=== PATIENT | female | born 1985 | race Caucasian/White ===

== ENCOUNTER → 2017-11-27 10:15 | Outpatient (CLI) | payer MEDICAID, SELFPAY ==
--- NOTE | 2017-11-27 10:21 | XR_ITS ---
XR knee LT 3V HISTORY: Pain following injury ITS.REASON: LEFT KNEE INJURY ORDERING PHYSICIAN: JAYCOB Jimenez PATIENT AGE: 32 years COMPARISON: None FINDINGS: Exostosis involves the superior aspect of the patella No fracture or dislocation. No lytic or blastic change. Normal mineralization. No significant arthritic changes evident. No other significant findings IMPRESSION: No acute finding
== END ==
PROVIDERS: PCP Family Medicine; Visit Provider Physician Assistant
DX: S89.92XA Unspecified injury of left lower leg, initial encounter (principal)
CPT/HCPCS: 73562

== ENCOUNTER 2020-02-17 13:48 | Emergency (ER) | payer OTHER, SELFPAY ==
[2020-02-17 13:58] VITALS: BP 140/87; PULSE 68; RESP 20; TEMP 36.8; O2SAT 100; BMI 31.6
--- NOTE | 2020-02-17 14:08 | HMH.EDUTC ---
[facility] [place] Disposition Clinical Impression: Otitis media Qualifiers: Otitis media type: unspecified Laterality: right Qualified Code(s): H66.91 - Otitis media, unspecified, right ear Disposition: Home, Self-Care Condition on Discharge: Good Instructions: Middle Ear Infection, Middle Ear Infections (Alternative Therapy), Amoxicillin Additional Instructions: *Monitor Temp, Over the counter Motrin or Tylenol as directed/as needed Tylenol every 4 hours and Motrin every 6 hours (as long as your family doctor has told you that you can take it) for fever or pain. and straight to ER if unable to lower temp less than 101.0 after medication given *Warm salt water gargles may help to soothe the throat *Throat Lozenges *Warm fluids like tea with honey may help to soothe the throat *Sleep elevated *Humidifier/Vaporizer *Flonase 2 sprays in each nostril daily but be aware that it may take 2-3 days before you notice improvement Follow up IMMEDIATELY for new or worsening symptoms or no Noticeable improvement over the next 48-72 hours. 911 for difficulty breathing or swallowing Prescriptions: Amoxicillin [Amoxicillin 875MG Tab] 875 mg PO Q12H #20 tab Transmission Status: P[facility] to [facility] Fluticasone Propionate [Flonase 50mcg nasal spray 16gm] 1 - 2 spr NS DAILY #1 bottle Transmission Status: Pending to [facility] Referrals: Ashvin Addison MD [Primary Care Provider] - As needed Time of Disposition: 14:16 Medical Decision Making - Benjamín Inquiry Pt receiving controlled substance: No Benjamín was queried for this patient: No Vital Signs: 02/17/20 13:58 Temperature 98.2 F Temperature Source Oral Pulse Rate [Right Brachial] 68 Respiratory Rate 20 Blood Pressure [Right Arm] 140/87 Blood Pressure Mean [Right Arm] 104 Blood Pressure Source [Right Arm] Automatic Cuff Blood Pressure Position [Right Arm] Sitting 02 Sat by Pulse Oximetry 100 Oxygen Delivery Method Room Air [facility] [place] HPI - General Stated complaint: ear pain Time Seen by Provider: 02/17/20 14:08 Mode of Arrival: Ambulatory Source of Information: Patient Limitations: No Limitations Description of Symptoms (Recalled from Triage Doc. by RN): PATIENT C/O RIGHT EAR PAIN X 2 DAYS HEENT Symptoms (Recalled from RN notes): Yes Resp Symptoms (Recalled from RN notes): No Skin Symptoms (Recalled from RN notes): No MS Symptoms (Recalled from RN notes): No Functional Status (Recalled from RN notes): WNL - History of Present Illness Provider Complaint: Patient states that she has been having pain in her right ear that has continued to get worse over the last couple of days States that today it was throbbing and felt like she had water stuck in there States that it was shooting pain down into her neck/throat area so she come in to get it checked out - Related Data Home Medications Medication Instructions Recorded Confirmed phentermine 37.5 mg capsule 37.5 mg PO DAILY 01/03/20 02/17/20 Previous Rx's Medication Instructions Recorded Amoxicillin [Amoxicillin 875MG 875 mg PO Q12H #20 tab 02/17/20 Tab] Fluticasone Propionate [Flonase 1 - 2 spr NS DAILY #1 bottle 02/17/20 50mcg nasal spray 16gm] Allergies Allergy/AdvReac Type Severity Reaction Status Date / Time No Known Allergies Allergy Verified 01/03/20 16:12 - Worker's Comp Is this a Worker's Comp case?: No [facility] History - Hepatitis A Screen Drug use history?: No High risk sexual behaviors?: No History of sexually transmitted infection?: No Currently employed?: No Childcare worker?: No Do you have indoor plumbing?: Yes Do you have electricity?: Yes Attestation statement:: This patient has been screened for Hepatitis A risk factors. I have reviewed the patient's past medical history: Yes Other Surgeries: Yes: , Tubal Ligation, Other - Social History Smoking Status: Current every day smoker Tobacco Type: cigarettes # Packs/Day (cigarettes): 1
[2020-02-17 14:18] VITALS: BP 140/87; PULSE 68; RESP 20; TEMP 36.8; O2SAT 100
== END 2020-02-17 14:25 | disposition home or self-care (01) ==
PROVIDERS: Emergency Provider Nurse Practitioner; PCP Family Medicine
DX: H66.91 Otitis media, unspecified, right ear (principal); F17.210 Nicotine dependence, cigarettes, uncomplicated
CPT/HCPCS: 99201

== ENCOUNTER 2020-04-02 17:17 | Emergency (ER) | payer OTHER, SELFPAY ==
[2020-04-02 17:25] VITALS: BP 125/86; PULSE 64; RESP 20; TEMP 36.8; O2SAT 100; BMI 32.4
--- NOTE | 2020-04-02 18:40 | HMH.EDUTC ---
[facility] [place] Disposition Clinical Impression: Right otitis media Qualifiers: Otitis media type: suppurative Chronicity: acute Recurrence: non-recurrent Spontaneous tympanic membrane rupture: without spontaneous rupture Qualified Code(s): H66.001 - Acute suppurative otitis media without spontaneous rupture of ear drum, right ear Disposition: Home, Self-Care Condition on Discharge: Good Instructions: Middle Ear Infection Additional Instructions: Drink plenty of fluids. Take tylenol or ibuprofen for pain or fever. Take the medications as directed. Follow up with your regular doctor. GO TO THE ER FOR ANY WORSENING SYMPTOMS Prescriptions: Amoxicillin/Potassium Clav [Augmentin 875-125 Tablet] 1 tab PO Q12H 10 Days #20 tab Transmission Status: Received by [facility] predniSONE [Deltasone 10mg tablet] 10 mg PO BID 4 Days #8 tab Transmission Status: Received by [facility] Referrals: Ashvin Addison MD [Primary Care Provider] - Forms: Work/School Release Time of Disposition: 18:43 Medical Decision Making - Medical Records Medical records reviewed: No: I reviewed the patient's medical records. - Benjamín Inquiry Pt receiving controlled substance: No Vital Signs: 04/02/20 17:25 04/02/20 18:47 Temperature 98.2 F 98.2 F Temperature Source Oral Pulse Rate 64 Pulse Rate [Right Brachial] 64 Respiratory Rate 20 20 Blood Pressure 125/86 Blood Pressure [Right Arm] 125/86 Blood Pressure Mean [Right Arm] 99 Blood Pressure Source [Right Arm] Automatic Cuff Blood Pressure Position [Right Arm] Sitting 02 Sat by Pulse Oximetry 100 Oxygen Delivery Method Room Air [facility] [place] HPI - General Stated complaint: Right ear pain Time Seen by Provider: 04/02/20 17:30 Mode of Arrival: Ambulatory Source of Information: Patient Limitations: No Limitations Description of Symptoms (Recalled from Triage Doc. by RN): PATIENT C/O RIGHT EAR PAIN X 2 DAYS WITH SOME DIZZINESS AND MUFFLED HEARING HEENT Symptoms (Recalled from RN notes): Yes Resp Symptoms (Recalled from RN notes): No Skin Symptoms (Recalled from RN notes): No MS Symptoms (Recalled from RN notes): No Functional Status (Recalled from RN notes): WNL - History of Present Illness Provider Complaint: She c/o right ear pain since yesterday. She has been having trouble with ear infections in her right ear for a few months now. - Related Data Home Medications Medication Instructions Recorded Confirmed phentermine 37.5 mg capsule 37.5 mg PO DAILY 01/03/20 04/02/20 Previous Rx's Medication Instructions Recorded Amoxicillin/Potassium Clav 1 tab PO Q12H 10 Days #20 tab 04/02/20 [Augmentin 875-125 Tablet] predniSONE [Deltasone 10mg tablet] 10 mg PO BID 4 Days #8 tab 04/02/20 Allergies Allergy/AdvReac Type Severity Reaction Status Date / Time No Known Allergies Allergy Verified 01/03/20 16:12 - Worker's Comp Is this a Worker's Comp case?: No [facility] History - Hepatitis A Screen Drug use history?: No High risk sexual behaviors?: No History of sexually transmitted infection?: No Currently employed?: No Childcare worker?: No Do you have indoor plumbing?: Yes Do you have electricity?: Yes Attestation statement:: This patient has been screened for Hepatitis A risk factors. I have reviewed the patient's past medical history: Yes Other Surgeries: Yes: , Tubal Ligation, Other - Social History Smoking Status: Current every day smoker Tobacco Type: cigarettes # Packs/Day (cigarettes): 1 Alcohol Intake: never Alcohol Intake Frequency:: other Substance Use Type: denies use Occupational Status: other Family Hx:: No significant family history ROS Obtained: Yes All systems reviewed & no additional complaints - Constitutional Constitutional: Denies chills, Denies fever(s), Denies poor appetite, Reports malaise - Eyes Eyes: Denies eye discharge - ENT Ears, Nose, Mouth, and Throat: Reports as per HPI P
[2020-04-02 18:47] VITALS: BP 125/86; PULSE 64; RESP 20; TEMP 36.8; O2SAT 100
== END 2020-04-02 18:55 | disposition home or self-care (01) ==
PROVIDERS: Emergency Provider Nurse Practitioner Family; PCP Family Medicine
DX: H66.001 Acute suppurative otitis media without spontaneous rupture of ear drum, right ear (principal); F17.210 Nicotine dependence, cigarettes, uncomplicated
CPT/HCPCS: 99201

== ENCOUNTER 2020-05-31 09:54 | Emergency (ER) | payer OTHER, SELFPAY ==
[2020-05-31 10:01] VITALS: BP 122/70; PULSE 84; RESP 16; TEMP 36.8; O2SAT 98; BMI 30.7
--- NOTE | 2020-05-31 10:09 | HMH.EDUTC ---
[facility] [place] Clinical Impression: Strep throat Disposition: Home, Self-Care Condition on Discharge: Good Instructions: DI for Strep Throat, Preventing the Spread of Coronavirus Discharge Instructions Additional Instructions: *Monitor Temp, Over the counter Motrin or Tylenol as directed/as needed Tylenol every 4 hours and Motrin every 6 hours (as long as your family doctor has told you that you can take it) for fever or pain. and straight to ER if unable to lower temp less than 101.0 after medication given *Warm salt water gargles may help to soothe the throat *Throat Lozenges *Warm fluids like tea with honey may help to soothe the throat *Sleep elevated *Humidifier/Vaporizer *If you did not take Penicillin shot or was unable to, start taking antibiotic immediately and make sure that you take it for the FULL length of time although you should start to feel better in 24-48 hours *change toothbrush and toothpaste 24-48 hours after starting to take antibiotics so you do not reinfect yourself Monitor Temp. Tylenol and/or Ibuprofen as needed. ER if fever is no less than 101 despite alternating Tylenol and Ibuprofen * Encourage fluids, water, Gatorade, powerade, pedialyte if /toddler/or child *Cold fluids, popsicles and ice cream may feel good on his throat Follow up IMMEDIATELY for new or worsening symptoms or no Noticeable improvement over the next 48-72 hours. 911 for difficulty breathing or swallowing You were tested for today for COVID19 your test result should be back in the next 24-48 hours, you may call to the [facility] to see if your test results are back in the next 48 hours [phone] [facility] hours are 9am-9pm You was given a handout with instructions for Self Quarantine and Self isolation for while you wait on test results and what to do if they are positive If you are positive the Health Dept will be contacting you also Prescriptions: Amoxicillin [Amoxicillin 500mg Cap] 500 mg PO BID 10 Days #20 cap Transmission Status: Pending to [facility] Fluticasone Propionate [Flonase 50mcg nasal spray 16gm] 1 spr NS DAILY #1 bottle Transmission Status: Pending to [facility] Referrals: Ashvin Addison MD [Primary Care Provider] - As needed Forms: Work/School Release Time of Disposition: 10:15 Medical Decision Making - Benjamín Inquiry Pt receiving controlled substance: No Benjamín was queried for this patient: No Vital Signs: 05/31/20 10:01 Temperature 98.2 F Temperature Source Oral Pulse Rate [Right] 84 Respiratory Rate 16 Blood Pressure [Right Arm] 122/70 Blood Pressure Mean [Right Arm] 87 Blood Pressure Source [Right Arm] Automatic Cuff Blood Pressure Position [Right Arm] Sitting 02 Sat by Pulse Oximetry 98 Oxygen Delivery Method Room Air - Lab Data Lab results reviewed: Yes: I reviewed the patient's lab results. [facility] [place] - General Stated complaint: Sore throat, diarrhea Time Seen by Provider: 05/31/20 10:09 Mode of Arrival: Ambulatory Source of Information: Patient Limitations: No Limitations Description of Symptoms (Recalled from Triage Doc. by RN): pt c/o sore throat for the past week and diarrhea that started a couple of days ago HEENT Symptoms (Recalled from RN notes): Yes (sore throat) Resp Symptoms (Recalled from RN notes): No Skin Symptoms (Recalled from RN notes): No MS Symptoms (Recalled from RN notes): No Functional Status (Recalled from RN notes): na - History of Present Illness Provider Complaint: Patient state that she has been having sore throat and nasal congestion that started about a week ago State that she has continued to have sore throat and yesterday started having diarrhea State that today she was still having diarrhea and they made her leave work. State that she called her PCP and was told to come here to [facility] - Related Data Home Medications Medication Instructions Recorded Confirmed phentermine 37.5 mg capsule 37.5 mg PO DAILY 01/03/20 10
[2020-05-31 10:12] LABS: UTC Strep Screen (Rapid) Positive (Negative)
[2020-05-31 10:29] VITALS: BP 122/74; PULSE 70; RESP 16; TEMP 36.9; O2SAT 98
[2020-06-01 13:29] LABS: Covid-19 Nasal PCR Sendout Lex NOT DETECTED
== END 2020-05-31 10:30 | disposition home or self-care (01) ==
PROVIDERS: Emergency Provider Nurse Practitioner; PCP Family Medicine
DX: Z20.828 Contact with and (suspected) exposure to other viral communicable diseases (principal); J02.0 Streptococcal pharyngitis; F17.210 Nicotine dependence, cigarettes, uncomplicated
CPT/HCPCS: 87880; 99202; U0004

== ENCOUNTER 2020-08-20 13:53 | Emergency (ER) | payer OTHER, SELFPAY ==
[2020-08-20 14:10] VITALS: BP 164/95; PULSE 88; RESP 14; TEMP 36.7; O2SAT 99; BMI 31.1
--- NOTE | 2020-08-20 14:27 | HMH.EDUTC ---
[facility] [place] Clinical Impression: Otitis media Qualifiers: Otitis media type: suppurative Chronicity: acute Laterality: bilateral Recurrence: non-recurrent Spontaneous tympanic membrane rupture: without spontaneous rupture Qualified Code(s): H66.003 - Acute suppurative otitis media without spontaneous rupture of ear drum, bilateral Sinusitis Qualifiers: Sinusitis location: unspecified location Chronicity: acute Recurrence: non-recurrent Qualified Code(s): J01.90 - Acute sinusitis, unspecified Disposition: Home, Self-Care Condition on Discharge: Good Instructions: Middle Ear Infection, DI for Sinusitis Additional Instructions: Drink plenty of fluids. Take tylenol or ibuprofen for pain or fever. Take the medications as directed. Follow up with your regular doctor. GO TO THE ER FOR ANY WORSENING SYMPTOMS Prescriptions: Amoxicillin/Potassium Clav [Augmentin 875-125 Tablet] 1 tab PO Q12H 10 Days #20 tab Transmission Status: Received by [facility] predniSONE [Deltasone 10mg tablet] 10 mg PO BID 3 Days #6 tab Transmission Status: Received by [facility] Referrals: Ashvin Addison MD [Primary Care Provider] - Forms: Work/School Release Time of Disposition: 14:41 Medical Decision Making - Medical Records Medical records reviewed: No: I reviewed the patient's medical records. - Benjamín Inquiry Pt receiving controlled substance: No Vital Signs: 08/20/20 14:10 08/20/20 14:53 Temperature 98.1 F 98.1 F Temperature Source Oral Pulse Rate 88 Pulse Rate [Right Brachial] 88 Respiratory Rate 14 14 Blood Pressure 164/95 H Blood Pressure [Right Arm] 164/95 H Blood Pressure Mean [Right Arm] 118 Blood Pressure Source [Right Arm] Automatic Cuff Blood Pressure Position [Right Arm] Sitting 02 Sat by Pulse Oximetry 99 Oxygen Delivery Method Room Air [facility] [place] HPI - General Stated complaint: right ear pain, headache,stuffy Time Seen by Provider: 08/20/20 14:34 - History of Present Illness Provider Complaint: She states that she has had left ear pain and sinus congestion for the past 3 days. - Related Data Previous Rx's Medication Instructions Recorded Amoxicillin/Potassium Clav 1 tab PO Q12H 10 Days #20 tab 08/20/20 [Augmentin 875-125 Tablet] predniSONE [Deltasone 10mg tablet] 10 mg PO BID 3 Days #6 tab 08/20/20 Allergies Allergy/AdvReac Type Severity Reaction Status Date / Time No Known Allergies Allergy Verified 05/31/20 10:04 [facility] History - Hepatitis A Screen Attestation statement:: This patient has been screened for Hepatitis A risk factors. I have reviewed the patient's past medical history: Yes Other Surgeries: Yes: , Tubal Ligation, Other - Social History Smoking Status: Current every day smoker Tobacco Type: cigarettes # Packs/Day (cigarettes): 1 Alcohol Intake: never Alcohol Intake Frequency:: other Substance Use Type: denies use Occupational Status: other Family Hx:: No significant family history ROS Obtained: Yes All systems reviewed & no additional complaints - Constitutional Constitutional: Denies chills, Denies fever(s), Reports poor appetite, Reports malaise - Eyes Eyes: Denies eye discharge - ENT Ears, Nose, Mouth, and Throat: Reports as per HPI Physical Exam - General General appearance: alert, in no apparent distress - Head Head exam: atraumatic, normocephalic, normal inspection - Eye Eye exam: Present: normal appearance, PERRL, EOMI - ENT ENT exam: Present: mucous membranes moist, normal external ear exam - Expanded ENT Exam TM/Canal exam: Bilateral TM: erythema, bulging, effusion Nose exam: Present: sinus tenderness Mouth exam: Present: normal external inspection Teeth exam: Present: normal inspection Throat exam: Present: tonsillar erythema. Absent: tonsillomegaly, tonsillar exudate, R peritonsillar mass, L peritonsillar mass - Neck Neck exam: Present: normal inspection, fu
[2020-08-20 14:53] VITALS: BP 164/95; PULSE 88; RESP 14; TEMP 36.7; O2SAT 99
== END 2020-08-20 14:55 | disposition home or self-care (01) ==
PROVIDERS: Emergency Provider Nurse Practitioner Family; PCP Family Medicine
DX: H66.003 Acute suppurative otitis media without spontaneous rupture of ear drum, bilateral (principal); J01.90 Acute sinusitis, unspecified; F17.210 Nicotine dependence, cigarettes, uncomplicated
CPT/HCPCS: 99202; G0463

== ENCOUNTER 2023-10-17 18:12 | Emergency (ER) | payer OTHER, SELFPAY ==
[2023-10-17 18:40] VITALS: BP 136/80; PULSE 79; RESP 18; TEMP 36.9; O2SAT 99; BMI 33.6
--- NOTE | 2023-10-17 18:48 | EXP.UTC ---
Discharge Plan Disposition Patient Disposition: Home, Self-Care Condition: Good Prescriptions Prescriptions: New phenazopyridine [Pyridium] 200 mg tablet 200 mg PO Q8H 2 Days Qty: 6 0RF ciprofloxacin HCl [Cipro] 500 mg tablet 500 mg PO BID 7 Days Qty: 14 0RF ondansetron 4 mg Tablet,Disintegrating 4 mg PO Q8H PRN (Reason: Nausea) Qty: 9 0RF Referrals Follow up/Referrals: Ashvin Addison MD [Primary Care Provider] - See instructions Activity Restrictions/Add. Instructions Additional Instructions/Restrictions: Drink plenty of fluids. Take tylenol or ibuprofen for pain or fever. Take the medications as directed. Follow up with your regular doctor. GO TO THE ER FOR ANY WORSENING SYMPTOMS The pyridium will make your urine turn orange, this is an expected side effect. It will stain your clothes if it comes into contact with them. We will culture the urine. That will tell what bacteria is causing your infection and which antibiotics will treat it best. Sometimes the first antibiotic we prescribe turns out to not work against different bacteria. So, make sure you follow up within 3 days if you are not getting better. Clinical Impressions Clinical Impression: UTI (urinary tract infection) Instructions Patient Instructions: Urine Culture, DI for Urinary Tract Infection (UTI), Ondansetron, Phenazopyridine Discharge ED Provider: Kvng Ramachandran [facility] General Stated complaint: painful to urinate , nausea Time Seen by Provider: 10/17/23 18:33 History of Present Illness Provider Complaint: She states that for the past 2 days she has had dysuria, urinary frequency, low back pain, and malaise. Related Data Previous Rx's Medication Instructions Recorded ciprofloxacin HCl 500 mg tablet 500 mg PO BID 7 days #14 tabs 10/17/23 (Cipro) ondansetron 4 mg disintegrating 4 mg PO Q8H PRN Nausea #9 tabs 10/17/23 tablet phenazopyridine 200 mg tablet 200 mg PO Q8H 2 days #6 tabs 10/17/23 (Pyridium) Allergies Allergy/AdvReac Type Severity Reaction Status Date / Time No Known Allergies Allergy Verified 10/17/23 18:54 [facility] Disclaimer: The information contained in this section may have been updated after the patient was seen, as this information can be updated by other users. Social History Smoking Status: Current every day smoker tobacco type: cigarettes packs per day: 1 alcohol intake: never substance use type: denies use current occupational status: other Travel in the last 8 weeks: None ROS Obtained: Yes All systems reviewed & no additional complaints except as documented Constitutional Constitutional: Reports system reviewed and no additional complaints, except as documented, Denies chills and Denies fever(s) Eyes Eyes: Denies eye discharge ENT Ears, Nose, Mouth, and Throat: Denies dysphagia, Denies sore throat and Denies throat swelling Cardiovascular Cardiovascular: Denies chest pain and Denies dyspnea Respiratory Respiratory: Denies chest congestion, Denies cough and Denies dyspnea Gastrointestinal Gastrointestingal: Reports nausea and vomiting; Denies abdominal pain, constipation, diarrhea or dysphagia Genitourinary Female Genitourinary: Reports as per HPI, Reports dysuria, Reports urinary frequency, Denies urinary incontinence, Reports urinary hesitancy and Reports urinary urgency Musculoskeletal Musculoskeletal: Denies arthralgias and Reports back pain Integumentary/Breasts Skin/Breast: Denies rash Neurologic Neurologic: Denies paresthesias Allergic/Immunologic Allergic/Immunologic: Denies throat swelling Physical Exam General General appearance: alert and in no apparent distress Head Head exam: atraumatic and normocephalic Eye Eye exam: Present normal appearance, PERRL and EOMI ENT ENT exam: Present normal exam, mucous membranes moist, TM's normal bilaterally and normal external ear exam Neck Neck exam: Present normal inspection, full ROM and trachea midline; Absent tenderness, meningismus or lymphadenopathy Chest Chest inspection: Present normal inspection and symmetric chest wall rise; Absent tenderness Respiratory Respiratory exam: Present normal lung sounds bilaterally; Absent respiratory distress, wheezes or stridor Cardiovascular Cardiovascular exam: Present regular rate, normal rhythm and normal heart sounds Abdominal Exam Abdominal exam: Present soft and normal bowel sounds; Absent distention, tenderness, guarding, rebound, rigidity, incision, psoas sign, obturator sign, heel tap sign, Narayanan's sign, Rovsing's sign or tenderness at McBurney's Point Extremities Exam Extremities exam: Present normal inspection, full ROM and normal capillary refill; Absent tenderness, edema, joint swelling, calf tenderness or cyanosis Back Exam Back exam: Present normal inspection and full ROM; Absent tenderness, CVA tenderness (R) or CVA tenderness (L) Neurological Exam Neurological exam: Present alert, oriented X3 and normal gait Psychiatric Psychiatric exam: Present normal affect and normal mood Skin Skin exam: Present warm, dry, intact and normal color Lymphatic Lymphatic Findings: no adenopathy Medical Decision Making Medical Records Medical records reviewed: No I reviewed the patient's medical records. Benjamín Inquiry Pt receiving controlled substance: No Lab Data Lab results reviewed: Yes I reviewed the patient's lab results.
[2023-10-17 19:02] LABS: Color,Urine Orange (Yellow)
[2023-10-17 19:03] LABS: Apearance,Urine Cloudy (Clear); Bilirubin,Urine Negative (Negative); Blood, Urine 3+ (Negative); Glucose,Urine (UA) 100 (Negative); Ketones,Urine Negative (Negative); PH,Urine 6.5 (5.0-8.5); Protein,Urine Trace (Negative); UTC Leukocyte Esterase,Urine 1+ (Negative); UTC Nitrate,Urine Positive (Negative); Urobilinogen,Urine 1 EU/dl (0.2)
[2023-10-17] MEDS: cefTRIAXone 1GM VIAL 1 GM IM (19:09)
[2023-10-17] MEDS: LIDOCAINE 1% 5ML PF VIAL IM (19:09)
[2023-10-17 19:30] VITALS: BP 136/80; PULSE 79; RESP 18; TEMP 36.9; O2SAT 99
== END 2023-10-17 19:30 | disposition home or self-care (01) ==
PROVIDERS: Emergency Provider Nurse Practitioner Family; PCP Family Medicine
DX: N39.0 Urinary tract infection, site not specified (principal); B95.7 Other staphylococcus as the cause of diseases classified elsewhere; M54.59 Other low back pain; F17.210 Nicotine dependence, cigarettes, uncomplicated
CPT/HCPCS: 81003; 87086; 96372; 99204; 99212; G0463; J0696